=== PATIENT | male | born 1990 | race Caucasian/White ===

== ENCOUNTER 2017-01-29 20:17 | Emergency (ER) | payer OTHER ==
[2017-01-30] MEDS ORDERED: SULFACETAMIDE SODIUM 150 DROP BTL RIGHTEYE ONE (00:15)
[2017-01-30] MEDS ORDERED: SULFACETAMIDE SODIUM 150 DROP BTL ONE (00:18)
--- OUTSIDE RECORDS SUMMARY | 2017-01-30 00:22 | XMS REPORT | Continuity of Care Document ---
:1990 Author Organization [facility] ([facility]) Address [address] [place] [address] Phone [phone] Care Team Providers Name Role Phone Unavailable Primary Care Provider Unavailable Source Comments This disclosure is being made pursuant to the Care Everywhere program, applicable federal and state laws, and may not contain all informaitonavailable regarding this patient.[facility] ([facility]) Active Allergies and Adverse Reactions Not on File Current Medications Not on file Active Problems Not on file Social History Tobacco Use Types Packs/Day Years Used Date Never Assessed Plan of Care Health Maintenance Due Date Last Done Comments Hepatitis B Vaccine (1 of 3 - Primary Series) 1991 HPV Vaccine (1 of 3 - Male 3 Dose Series) 2002 Tdap Vaccine 2002 Lipid Disorder Screening 2009 MMR Vaccine 2009 Td Vaccine 2009 Varicella Vaccine (1 of 2 - Adult - No Evidence of 2009 Immunity) Influenza Vaccine: Seasonal (#1) 05/31/2016 Results from Last 3 Months Not on file
--- NOTE | 2017-01-30 00:29 | ERNOTE ---
ENT HPI Date of Service: 01/29/17 Time Seen by Provider: 01/29/17 23:58 - Immun/Allergies/Home Medications Immunizations: IMMUNIZATION HX Immunizations Up to Date Yes History of Influenza Vaccine Yes Hx Pneumococcal Vaccination No Allergies/Adverse Reactions: Allergies Allergy/AdvReac Type Severity Reaction Status Date / Time No Known Allergies Allergy Verified 01/29/17 21:14 Home Medications: HOME MEDICATIONS Famotidine 40 mg PO DAILY #60 tablet 02/15/16 [Last Taken Unknown] Loratadine [Claritin] 10 mg PO DAILY 06/19/16 [Last Taken Unknown] Promethazine HCl [Phenergan (Promethazine)] 25 mg PO Q6H PRN #30 tablet [Last Taken Unknown] Sucralfate [Carafate Suspension] 1 g PO ACHS #40 udc 10/19/16 [Last Taken Unknown] - History of Present Illness Narrative: RIGHT EYE PAIN. THINKS HE GOT SOMETHING IN HIS EYE A WORK. Review of Systems - Review of Systems Constitutional: Present: See HPI EYE: Present: see HPI, eye pain, blurred vision, tearing ENT: Present: no symptoms reported Skin: Present: no symptoms reported Psych: Present: no symptoms reported All Other Systems: All systems neg except as marked - Patient's Past Medical History Patient History - Medical: GERD Patient History - Cardiac/Respiratory: No pertinent hx Patient History - Cancer: No Hx of Cancer Patient History - Surgical Procedures: Cholecystectomy, T & A Patient History - Other: None - Family History Father Family History - Medical: History Unknown Mother Family History - Medical: GERD - Social History Living Situations: home Abuse History: No History of abuse Psych History: No pertinent hx Smoking Status: Current every day smoker Patient requests Smoking Cessation Consult: No Initiate information on Smoking Cessation: No Alcohol Use: occasionally Drug Use: none - Immunizations Immunizations Up to Date: Yes Hx Pneumococcal Vaccination: No History of Influenza Vaccine: Yes Physical Exam - Physical Exam General Appearance: Present: wd/wn, alert, mild distress Eye Exam: PERRL: bilateral, EOMI: bilateral, Sclera injection: right, Other: right - NO F.B. SEEN IN EITHER EYE. EYELID EVERSION OF RIGHT ALSO NEGATIVE. PT HAS SOME REDUNDANT SOFT FATTY MATERIAL TO NASAL ASPECT OF HIS RIGHT EYE, THE IRRITATED ONE , THAT HE SAYS IS CHRONIC. IT ALMOST LOOKS LIKE AN AREA OF CONJUCTIVAL EDEMA LIKE ONE MIGHT SEE WITH ALLERGIC REACTION BUT SAYS IS UNCHANGED. THE RIGHT EYE IS INJECTED. WITH TETRACAINE AND FLUORESCEIN AND BLUE LIGHT AND FUNDOSCOPIC EXAM I SEE NO FURTHER EVIDENCE OF FOREIGN BODY OR ABRASION. Ears, Nose, Throat: Present: normal ENT inspection Skin Exam: Present: normal color ED Progress - Vital Signs Vital Signs: Vital Signs 01/29/17 21:08 Temperature 36.7 C Pulse Rate 99 Respiratory 18 Rate Blood Pressure 139/78 O2 Sat by Pulse 94 Oximetry - Progress/Reassessment Chief Complaint: Eye Injury/Trauma Departure Clinical Impression: Eye abnormalities - Departure Disposition: Home self-care Condition: Good Instructions: Form - Excuse from Work, School, or Physical Activity Additional Instructions: I SUSPECT YOU GOT SOMETHING IN THE EYE AT WORK THAT CAUSE THE IRRITATION BUT I DO NOT SEE ANY FOREIGN BODY OR CORNEAL ABRASION TO THE EYE AT PRESENT. USE COOL COMPRESSES AND TYLENOL FOR COMFORT IF NEEDED. USE THE SULFACETAMIDE EYE DROPS DIRECTED UNTIL IMPROVED. IF WORSE OR NOT IMPROVING MAKE ARRANGEMENT TO RE CHECK WITH AN EYE DOCTOR OR RETURN TO THE ER. Referrals: Alisa Garcia, [employer] [Primary Care Provider] -
[2017-01-30 00:32] VITALS: BP 128/68
== END 2017-01-30 00:31 | disposition home or self-care (01) ==
LOC: ER 20:17
DX: H57.11 Ocular pain, right eye (principal)

== ENCOUNTER 2017-04-12 07:20 | Emergency (ER) | payer OTHER ==
[2017-04-12 07:30] VITALS: BP 136/79
--- NOTE | 2017-04-12 08:17 | ERNOTE ---
Medical Problem HPI - Narrative Date of Service: 04/12/17 - General Chief Complaint: General Assessment Time Seen by Provider: 04/12/17 07:56 Source: patient Exam Limitations: no limitations - Immun/Allergies/Home Medications Immunizations: IMMUNIZATION HX Immunizations Up to Date Yes History of Influenza Vaccine Yes Hx Pneumococcal Vaccination No Allergies/Adverse Reactions: Allergies No Known Allergies Allergy (Verified 04/12/17 07:30) Home Medications: HOME MEDICATIONS predniSONE [Prednisone] 2 tab PO DAILY #10 tab 04/12/17 [Last Taken Unknown] - History of Present History Narrative: Patient presents to the ED with family for a sunburn. He was out all day Tuesday and had a sunburn. He relates sunburn on shoulders, chest/trunk, minimnally face. it started blistering. No fever. No vomiting. Still making good urine. No fevers. Has not seen anyone else for this. No other injuries or complaints. The pain from the sunburn is his complaint. He has had sunburns before. Timing: constant Modifying Factors - (Improves): Present: other - nothing Modifying Factors - (Worsens): Present: other - touching the sunburn Review of Systems - Review of Systems Constitutional: Absent: fever Respiratory: Absent: shortness of breath Cardiology: Absent: chest pain Gastrointestinal/Abdominal: Absent: abdominal pain Genitourinary: Absent: decreased urinary output Neurological: Absent: weakness - Patient's Past Medical History Patient History - Medical: GERD Patient History - Cardiac/Respiratory: No pertinent hx Patient History - Cancer: No Hx of Cancer Patient History - Surgical Procedures: Cholecystectomy, T & A Patient History - Other: None - Family History Father Family History - Medical: History Unknown Mother Family History - Medical: GERD - Social History Living Situations: home Abuse History: No History of abuse Psych History: No pertinent hx Alcohol Use: occasionally Drug Use: none - Immunizations Immunizations Up to Date: Yes Hx Pneumococcal Vaccination: No History of Influenza Vaccine: Yes Physical Exam - Physical Exam General Appearance: Present: alert, no apparent distress, other - well hydrated , non-toxic, no distress. Eye Exam: Normal inspection: bilateral, PERRL: bilateral Ears, Nose, Throat: Present: normal ENT inspection. 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 Absent: motor weakness Skin Exam: Present: other - sunburn, mild face, mostly shoulders and upper chest /trunk. No LE involvement. Some small blisters on shoulders. No 3rd degree. No secondary infection noted. ED Progress - Vital Signs Patient's Vital Signs:: I have reviewed the patient's vital signs. Vital Signs: Vital Signs 04/12/17 07:26 Temperature 36.5 C Pulse Rate 62 Respiratory 12 Rate Blood Pressure 136/79 O2 Sat by Pulse 97 Oximetry - Progress/Reassessment Chief Complaint: General Assessment Progress Note-Subjective: 04/12/17 08:12 Sunburn without apparent complication. Nothing to suggest dehydration. I discussed warning signs and reasons to return as well as the need for close f/u. Departure - Departure Clinical Impression: Sunburn Disposition: Home self-care Condition: Stable Instructions: Sunburn, [id number] Additional Instructions: Rest. FLuids. You need to drink enough to have clear urine for the next 72 hours. Bacitracin/Neosporin on burn until it resolves. Follow-up with your doctor in 3 days for a re-check. Return for fever, signs of infection, decreased urine output or if your condition worsens or changes in any way., Referrals: Alisa Garcia FNP [Primary Care Provider] - Prescriptions: predniSONE [Prednisone] 2 tab PO DAILY #10 tab
--- OUTSIDE RECORDS SUMMARY | 2017-04-12 08:45 | XMS REPORT | Continuity of Care Document ---
:1990 Author Organization [facility] ([facility]) Address [address] [place] [address] Phone [phone] Care Team Providers Name Role Phone Unavailable Primary Care Provider Unavailable Source Comments This disclosure is being made pursuant to the Care Everywhere program, applicable federal and state laws, and may not contain all informaitonavailable regarding this patient.[facility] ([facility]) Active Allergies and Adverse Reactions Not [...]
== END 2017-04-12 08:28 | disposition home or self-care (01) ==
LOC: ER 07:20
DX: L55.9 Sunburn, unspecified (principal)

== ENCOUNTER 2017-09-14 11:44 | Emergency (ER) | payer OTHER ==
[2017-09-14 11:54] VITALS: BP 152/97
--- NOTE | 2017-09-14 12:26 | ERNOTE ---
ENT HPI Presenting Symptoms: nosebleed Time Seen by Provider: 09/14/17 11:55 Source: patient Exam Limitations: no limitations - Immun/Allergies/Home Medications Immunizations: IMMUNIZATION HX Immunizations Up to Date Yes History of Influenza Vaccine No Hx Pneumococcal Vaccination No Allergies/Adverse Reactions: Allergies Allergy/AdvReac Type Severity Reaction Status Date / Time No Known Allergies Allergy Verified 09/14/17 11:54 Home Medications: HOME MEDICATIONS Cyclobenzaprine HCl [Flexeril] 10 mg PO TID PRN 09/14/17 [Last Taken Unknown] Famotidine [Pepcid] 20 mg PO DAILY 09/14/17 [Last Taken Unknown] Loratadine [Alavert] 10 mg PO DAILY 09/14/17 [Last Taken Unknown] Naproxen [Naprosyn] 500 mg PO BID PRN 09/14/17 [Last Taken Unknown] Pantoprazole Sodium [Protonix] 40 mg PO DAILY 09/14/17 [Last Taken Unknown] - History of Present Illness Narrative: Patient presents with a nosebleed. Onset of the nosebleed was approximately an hour ago although it appears be tapering off at this point. Patient somewhat concerned because he's never had a nosebleed before. Severity: Present: mild ENT Location: Present: nose Prearrival Treatment: Present: no prearrival treatment Modifying Factors - Improves: Reports: nothing Modifying Factors - Worsens: Reports: nothing Associated Symptoms - ENT: Reports: denies symptoms Review of Systems - Review of Systems Constitutional: Present: See HPI EYE: Present: no symptoms reported ENT: Present: See HPI Respiratory: Present: no symptoms reported Cardiology: Present: no symptoms reported Gastrointestinal/Abdominal: Present: no symptoms reported Genitourinary: Present: no symptoms reported Musculoskeletal: Present: no symptoms reported Skin: Present: no symptoms reported Neurological: Present: no symptoms reported Endocrine: Present: no symptoms reported Hematologic/Lymphatic: Present: no symptoms reported Psych: Present: no symptoms reported - Patient's Past Medical History Patient History - Medical: GERD Patient History - Cardiac/Respiratory: No pertinent hx Patient History - Cancer: No Hx of Cancer Patient History - Surgical Procedures: Cholecystectomy, Colonoscopy, T & A Patient History - Other: None - Family History Father Family History - Medical: History Unknown Mother Family History - Medical: GERD - Social History Living Situations: home Abuse History: No History of abuse Psych History: No pertinent hx Have you smoked in the past 12 months: No Do you dip or chew tobacco: No Alcohol Use: rarely Drug Use: none - Immunizations Immunizations Up to Date: Yes Hx Pneumococcal Vaccination: No History of Influenza Vaccine: No Physical Exam - Physical Exam General Appearance: Present: wd/wn, alert, no apparent distress Eye Exam: Normal inspection: bilateral, PERRL: bilateral Ears, Nose, Throat: Present: normal ENT inspection, normal pharynx, other - nosebleed had resolved Neck: Present: normal inspection, nontender Respiratory: Present: no respiratory distress, normal breath sounds, no accessory muscle use, chest nontender, lungs clear Cardiovascular/Chest: Present: regular rate, rhythm, no murmur, normal peripheral pulses Gastrointestinal/Abdominal: Present: normal bowel sounds, nontender, nondistended, soft, no organomegaly Rectal Exam: Present: deferred Back Exam: Present: normal inspection, normal range of motion Extremity Exam: Present: normal inspection, non-tender, no edema, normal range of motion Neurological Exam: Present: alert, oriented, normal mood/affect Skin Exam: Present: normal color, warm/dry Lymphatic Exam: Present: no adenopathy ED Progress - Vital Signs Patient's Vital Signs:: I have reviewed the patient's vital signs. Vital Signs: Vital Signs 09/14/17 11:50 Temperature 36.5 C Pulse Rate 85 Respiratory 16 Rate Blood Pressure 152/97 O2 Sat by Pulse 97 Oximetry - Progress/Reassessment Chief Complaint: Nose Bleed Progress:: Improved Plan - Plan Plan: Prior to my examination I had the nurse blow the nose and applying nasal clamps. All bleeding stopped by the time I was able to come into the room. Patient was given instructions on how to keep the nasal passages moist using AYR or even [place]. He was told that he could use bacitracin or Polysporin ointment, although he was informed BUTTER would work as well. He was instructed to get a room vaporizer as well and told the winter times are fairly common for nose bleeds and he appeared to understand Departure Clinical Impression: Epistaxis - Departure Disposition: Home self-care Condition: Good Instructions: Nosebleed, [id number] Additional Instructions: Try AYR, [place] or some other to keep the nasal passages moist Referrals: Alisa Garcia FNP [Primary Care Provider] -
== END 2017-09-14 12:50 | disposition home or self-care (01) ==
LOC: ER 11:44
DX: R04.0 Epistaxis (principal)